=== PATIENT | male | born 1980 ===

== ENCOUNTER → 2019-09-18 | Outpatient (CLI) | payer OTHER | END | disposition home or self-care (01) | LOC: MRI 09:33 | DX: G40.009 Localization-related (focal) (partial) idiopathic epilepsy and epileptic syndromes with seizures of localized onset, not intractable, without status epilepticus (principal) ==

== ENCOUNTER 2019-09-28 08:55 | Outpatient (CLI) | payer OTHER | END 2019-09-28 09:05 | disposition home or self-care (01) | LOC: LAB 08:55 | DX: N20.0 Calculus of kidney (principal) ==

== ENCOUNTER → 2019-09-28 | Outpatient (CLI) | payer OTHER | END | disposition home or self-care (01) | LOC: MRI 09-26 09:15 | DX: G40.009 Localization-related (focal) (partial) idiopathic epilepsy and epileptic syndromes with seizures of localized onset, not intractable, without status epilepticus (principal) | CPT/HCPCS: 70553 ==